=== PATIENT | male | born 1960 ===

== ENCOUNTER 2018-10-20 10:19 | Emergency (ER) | payer OTHER ==
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
== END 2018-10-20 12:13 | disposition home or self-care (01) ==
LOC: MW.ED 10:19
DX: H11.31 Conjunctival hemorrhage, right eye (principal); M54.2 Cervicalgia; Y04.8XXA Assault by other bodily force, initial encounter; Y99.0 Civilian activity done for income or pay; Z79.899 Other long term (current) drug therapy
CPT/HCPCS: 70486; 70486-26; 70490; 70490-26; 99284; 99284-25